=== PATIENT | female | born 1990 ===

== ENCOUNTER 2018-08-22 10:18 | Emergency (ER) | payer MEDICAID, OTHER ==
[2018-08-22 10:18] VITALS: BMI 22.4
[2018-08-22 10:22] VITALS: RESP 20
[2018-08-22] MEDS ORDERED: Sodium Chloride 0.9% 1,000 ML IV ONE (10:46)
[2018-08-22] MEDS ORDERED: Sodium Chloride 0.9% 1,000 ML ONE (10:46)
[2018-08-22 11:06] LABS: BASO % 0.4 % (0.0-2.0); EOS % 0.2 % (0.0-4.0); HEMOGLOBIN 13.6 g/dL (11.0-16.0); LYMPH # 1.2 K/uL (1.0-4.3); LYMPH % 21.4 % (20.0-40.0); MEAN CELL VOLUME 89.3 fL (81.0-99.0); MEAN CORPUSCULAR HEMOGLOBIN 29.4 pg (27.0-31.0); MEAN CORPUSCULAR HGB CONC 32.9 g/dL (33.0-37.0); MONO # 0.3 K/uL (0.0-0.8); MONO % 5.6 % (0.0-10.0); NEUT % 72.4 % (50.0-75.0); NRBC % 0.1 % (0.0-2.0); RBC 4.64 Mil/uL (3.80-5.20); WHITE BLOOD COUNT 5.6 K/uL (4.8-10.8)
[2018-08-22 11:10] LABS: HCG,QUALITATIVE URINE NEGATIVE (NEGATIVE)
[2018-08-22 11:18] LABS: SQUAMOUS EPITHIAL 3 /hpf (0-5); URINE BILIRUBIN NEGATIVE (NEGATIVE); URINE BLOOD NEGATIVE (NEGATIVE); URINE CLARITY Clear (Clear); URINE COLOR Yellow (YELLOW); URINE GLUCOSE (UA) 3+ mg/dL (Normal); URINE LEUKOCYTE ESTERASE NEG Leu/uL (Negative); URINE PROTEIN NEGATIVE (NEGATIVE); URINE UROBILINOGEN NORMAL mg/dL (0.2-1.0)
[2018-08-22 11:21] LABS: ALB/GLOB RATIO 1.4 (1.0-2.1); ALT/SGPT 47 U/L (9-52); AST/SGOT 29 U/L (14-36); BLOOD UREA NITROGEN 15 mg/dL (7-17); GFR NON-AFRICAN AMERICAN > 60; LIPASE 87 U/L (23-300)
[2018-08-22] MEDS ORDERED: (Novolin R) Insulin Human Regular 100 units/ml vial IVP ONE (11:32)
--- NOTE | 2018-08-22 11:40 | RAD ---
Date of service: 08/22/2018 PROCEDURE: Radiographs of the chest and abdomen (obstructive series) HISTORY: pain to abd w. vomiting COMPARISON: No prior. TECHNIQUE: AP radiograph of the chest, with upright and supine radiographs of the abdomen. FINDINGS: CHEST: Lungs: Clear. Cardiovascular: Normal size heart. No pulmonary vascular congestion. Pleura: No pleural fluid. No pneumothorax. Other findings: None. ABDOMEN AND PELVIS: Bowel: Moderate stool retention.. No evidence of mechanical obstruction. Free air: None. Bones: Unremarkable. Other findings: IUD projects over pelvis Umbilical pierced jewelry piece present IMPRESSION: No infiltrate. Moderate stool retention. No evidence of mechanical bowel obstruction. Pelvic IUD present
[2018-08-22] MEDS ORDERED: (Novolin R) Insulin Human Regular 100 units/ml vial ONE (11:47)
--- NOTE | 2018-08-22 12:18 | C.PDOC ---
History Of Present Illness 28 year old female, whose history includes diabetes, presents to the Emergency department complaining of abdominal pain, nausea and vomiting x5 months. Patient was supposed to follow-up with a GI specialist but was unable to, due to lack of insurance. Patient states she had a few episodes of non-bloody/non-bilious vomiting again today, prompting visit. Patient denies any fever, chills, chest pain, shortness of breath, diarrhea, urinary symptoms, back pain, neck pain, headache, dizziness. Time Seen by Provider: 08/22/18 10:32 Chief Complaint (Nursing): Abdominal Pain History Per: Patient History/Exam Limitations: no limitations Onset/Duration Of Symptoms: Days Current Symptoms Are (Timing): Still Present Past Medical History Reviewed: Historical Data, Nursing Documentation, Vital Signs Vital Signs: Last Vital Signs Temp 98 F 08/22/18 10:21 Pulse 96 H 08/22/18 10:21 Resp 20 08/22/18 10:21 BP 119/81 08/22/18 10:21 Pulse Ox 99 08/22/18 10:21 - Medical History PMH: Diabetes, Gastritis - [facility] INJECT/INFUSE ELECTROLYT (02/01/14) INJECT/INFUSE NEC (02/01/14) Family History: States: Unknown Family Hx - Social History Hx Tobacco Use: No Hx Alcohol Use: No Hx Substance Use: No - Immunization History Hx Tetanus Toxoid Vaccination: No Hx Influenza Vaccination: No Hx Pneumococcal Vaccination: No Review Of Systems Constitutional: Negative for: Fever Cardiovascular: Negative for: Chest Pain, Palpitations Gastrointestinal: Positive for: Nausea, Vomiting, Abdominal Pain Genitourinary: Negative for: Dysuria, Hematuria, Vaginal Discharge, Vaginal Bleeding Musculoskeletal: Negative for: Back Pain Neurological: Negative for: Weakness, Numbness Physical Exam - Physical Exam Appears: Non-toxic, No Acute Distress Skin: Normal Color, Warm, Dry, No Rash Head: Atraumatic, Normacephalic Eye(s): bilateral: Normal Inspection, PERRL, EOMI Nose: Normal Oral Mucosa: Moist Lips: Normal Appearing Neck: Normal ROM Chest: Symmetrical, No Tenderness Cardiovascular: Rhythm Regular, No Murmur Respiratory: Normal Breath Sounds, No Accessory Muscle Use Gastrointestinal/Abdominal: Soft, Tenderness (generalized), No Guarding, No Rebound Extremity: Normal ROM, No Deformity Neurological/Psych: Oriented x3, Normal Speech ED Course And Treatment - Laboratory Results Result Diagrams: 08/22/18 11:01 08/22/18 11:01 Lab Interpretation: No Acute Changes O2 Sat by Pulse Oximetry: 99 Pulse Ox Interpretation: Normal (RA) Medical Decision Making Medical Decision Making: Impression: abd pain, vomiting Plan: * Bloodwork * XR abdomen * Pepcid, Insulin, Reglan, IVF, Zofran, Toradol * UA Reassess and Disposition: Diagnostics reviewed, elevated glucose otherwise normal labs. Urine shows no ketones. Xray shows constipation. Patient remained sleeping during the ED evaluation and observation. On re-eval, she was arousable and stated she felt unchanged. The mother is now at bedside. I explained results to both patient and mother. The patient is medically stable for discharge. Patient's mother expressed frustration because the patient has no insurance and is unable to see GI. I recommend the patient apply for [facility] care and be seen in the clinic for further care, and until then Rx given to help with symptoms. Patient has no fever, vital signs normal, abdomen soft without guarding. Patient given copy of all lab and imaging results. Disposition Counseled Patient/Family Regarding: Diagnosis, Need For Followup - Disposition Referrals: Luly Guzman MD [Staff Provider] - Disposition: HOME/ ROUTINE Disposition Time: 12:50 Condition: STABLE Additional Instructions: Please follow up with your doctor or in the clinic for further care. It is recommended you see GI Take medications for pain as needed and nausea. Prescriptions: Dicyclomine [Bentyl] 10 mg PO QID #20 cap Docusate [Colace] 100 mg PO TID PRN #30 cap PRN Reason: Constipation Magnesium Citrate [Citrate of Mag] 300 ml PO ONCE PRN #1 bottle PRN Reason: Constipation Ondansetron ODT [Zofran ODT] 1 odt PO BID PRN #10 odt PRN Reason: Nausea/Vomiting Instructions: Constipation, Adult (DC), Acute Abdomen (Belly Pain), Adult (DC) Forms: [facility] ([place]) - POA Present On Arrival: None - Clinical Impression Clinical Impression: Constipation, Abdominal pain - Scribe Statement The provider has reviewed the documentation as recorded by the Scribe (Kim Joseph) All medical record entries made by the Scribe were at my direction and personally dictated by me. I have reviewed the chart and agree that the record accurately reflects my personal performance of the history, physical exam, medical decision making, and the department course for this patient. I have also personally directed, reviewed, and agree with the discharge instructions and disposition.
[2018-08-22 12:49] VITALS: BP 115/80; PULSE 89; TEMP 98.6
[2018-08-22 13:12] VITALS: O2SAT 99
== END 2018-08-22 12:49 | disposition home or self-care (01) ==
LOC: C.ER 10:18
DX: K59.00 Constipation, unspecified (principal); R10.9 Unspecified abdominal pain; E11.9 Type 2 diabetes mellitus without complications
CPT/HCPCS: 74022; 80053; 81001; 82948; 83690; 84703; 85025; 96361; 96374; 96375; 99285; J1885; J2405; J2765; J7030